=== PATIENT | female | born 2000 | race Caucasian/White ===

== ENCOUNTER 2024-02-26 08:06 | Emergency (ER) | payer OTHER ==
[2024-02-26 08:42] VITALS: BP 122/83; PULSE 87; RESP 18; TEMP 98.9; BMI 39.6
[2024-02-26 09:05] LABS: BASO % 1.2 % (0-2.0); EOS % 3.9 % (0-4.5); HEMATOCRIT 39.7 % (32.4-45.2); HEMOGLOBIN 13.5 GM/dL (10.7-15.3); LYMPH % 26.3 % (8-40); MCH 30.7 pg (25.7-33.7); MCHC 34.1 g/dl (32.0-36.0); MEAN CELL VOLUME 90.1 fl (80-96); MEAN PLT VOLUME 8.8 fl (7.5-11.1); MONO % 6.7 % (3.8-10.2); NEUT % 61.9 % (42.8-82.8); PLATELET COUNT 316 10^3/uL (134-434); RBC 4.41 M/mm3 (3.60-5.2); RDW 13.3 % (11.6-15.6); WHITE BLOOD COUNT 8.9 K/mm3 (4.0-10.0)
[2024-02-26 09:32] LABS: POTASSIUM 4.2 mmol/L (3.5-5.1)
[2024-02-26 09:33] LABS: CALCIUM 9.4 mg/dL (8.5-10.1)
[2024-02-26 09:34] LABS: BLOOD UREA NITROGEN 16.8 mg/dL (7-18)
[2024-02-26 09:37] LABS: CREATININE 0.7 mg/dL (0.55-1.3)
[2024-02-26 10:11] LABS: EPI CELLS >36 /uL (0-25.1); HYALINE CASTS 1 /uL (0-3.1); PH,URINE 7.5 (5.0-8.0); URINE APPEARANCE TURBID; URINE BACTERIA 609 /uL (0-1359); URINE BILIRUBIN NEGATIVE (NEGATIVE); URINE COLOR RED; URINE GLUCOSE (UA) NEGATIVE (NEGATIVE); URINE KETONE NEGATIVE (NEGATIVE); URINE LEUK ESTERASE 1+ (NEGATIVE); URINE NITRITE NEGATIVE (NEGATIVE); URINE PROTEIN 1+ (NEGATIVE); URINE RBC 10171 /uL (0-23.9); URINE WBC 40 /uL (0-25.8)
== END 2024-02-26 14:37 | disposition home or self-care (01) ==
LOC: JER 08:06
DX: O20.0 Threatened abortion (principal)
CPT/HCPCS: 76817-TC; 80048; 81003; 84702; 84703; 85025; 86850; 86900; 86901; 87086; 99284-25